=== PATIENT | female | born 1980 | race Caucasian/White ===

== ENCOUNTER 2025-11-07 08:09 | Outpatient (AMB) | payer MEDICARE, SELFPAY ==
--- NOTE | 2025-11-11 21:16 | MHC.OFFVISWM ---
VS Expanded 11/11/25 21:17 Height 5 ft 2 in Weight 154 lb 6 oz BMI 28.2 Body Fat % 23.7 Body Fat Mass 36.65 Fat Free Mass 106.2 Visceral Fat Rating 14 Body Water % 49.6 Body Water Mass 76.6 Basal Metabolic Rate/Score 1,399 Intake Visit Reasons: TV Pre Op Panniculectomy/Hernia Repair 12/01/25 Allergies fluoxetine (From Prozac) Allergy (Mild, Verified 11/11/25 21:22) Rash medroxyprogesterone (From Depo-Provera) Allergy (Mild, Verified 11/11/25 21:22) Rash aspartame Allergy (Verified 11/11/25 21:22) Unknown Medication List - Last Reconciled 11/11/25 by Jonel Perea MD allopurinol 150 mg PO DAILY amlodipine 5 mg PO DAILY PRN atorvastatin (Lipitor) 20 mg PO BEDTIME cephalexin 500 mg PO Q12H docusate sodium (Colace) 100 mg PO DAILY ergocalciferol (vitamin D2) 1,250 mcg PO QWEEK escitalopram oxalate 15 mg PO DAILY fenofibrate 160 mg PO DAILY folic acid 5 mg PO DAILY furosemide (Lasix) 40 mg PO DAILY PRN icosapent ethyl (Vascepa) 2 grams PO BID levothyroxine 50 mcg PO DAILY mirtazapine 30 mg PO BEDTIME multivitamin 1 tab PO DAILY ondansetron 4 mg PO Q12H oxcarbazepine 600 mg PO BID polyethylene glycol 3350 17 grams PO DAILY quetiapine 200 mg PO BEDTIME topiramate 200 mg PO BID vitamin B complex 1 tab PO DAILY HPI HPI TV Pre Op Panniculectomy/Hernia Repair 12/01/25: Details: Start time: 2pm, End time: 2.45pm ?I spent 40 minutes speaking with the patient on the phone plus an additional 5 minutes reviewing and updating records for a total of 45 minutes HPI Comments Details: Sue underwent an [employer] gastric balloon by me in [facility] on 03/21/2025. The balloon was uneventfully passed in the stool. Under my supervision she has lost a total of 74.8lbs, or 32.6% TBWL. Post balloon, Mounjaro was used up to a dose of 7.5mg/week to facillate further weight loss. The Mounjaro was stopped a few weeks ago due to abdominal pain and nausea and has not been re-started. Sue had two failed incisional ventral hernia repairs with mesh and has developed a massive recurrent ventral hernia with loss of domain. This has been confirmed by abdominal CT. In addition due to the weight loss, she has developed a massive abdominal pannus that hands over to upper 1/3 of her thighs causing persistent rashes and odor. [facility] Medical History (Updated 11/11/25 @ 21:23 by Jonel Perea MD) Hypothyroidism Hyperuricemia Excess skin Anxiety Depression Hypertension Hyperlipidemia Non-insulin dependent type 2 diabetes mellitus Chronic renal insufficiency Recurrent ventral incisional hernia Overweight Surgical History (Updated 11/11/25 @ 21:05 by Jonel Perea MD) S/P repair of recurrent ventral hernia H/O ventral hernia repair History of laparoscopic cholecystectomy Telehealth Telehealth Telehealth Platform: Telephone Location of provider rendering services: practice address Location of patient: address on file Patient Identification confirmed using: Name, : Yes Telehealth method: voice only Patient verbally consented to treatment: Yes Patient verbally consented to billing insurance company: Yes Patient informed of any privacy concerns related to visit: Yes Minutes spent on Phone/Video with Pt.: 45 Assessment & Plan Assessment & Plan (1) Recurrent ventral incisional hernia: Code(s): K43.2 - Incisional hernia without obstruction or gangrene Category: Medical Plan: 1. Plan for incisional ventral hernia repair and panniculectomy. Risks of infection, bleeding, asymmetry, wound dehiscence and blood clots were discussed with the patient. 2. You will have a drain the abdomen that may stay a few weeks before it may be removed 3. You will need to be doing sponge baths the first 1-2 weeks. No showers. You need to have help at home to get you up and limit your activities as much as possible for at least the 4-6 weeks after surgery 4. We will arrange for a visiting nurse to come at home to help you with dressing changes and send me pictures of the procedures. We will send at your home supplies for the dressing changes. 5. As of 11/24/2025, please change nutritional plan to four IsoWhey protein shakes with HALF SCOOP EACH in 8oz low fat unsweetened almond milk ?at 7am-9am, 10am-12pm, 1pm-3pm and 4pm-6pm AND ONE more IsoWHEY protein shake with ONE scoop in 8oz unsweetended almond milk at 7pm-9pm. This will improve weight loss and healing after surgery. 6. Continue all vitamins 7. Do not use the Lasix as of 11/29/25 (last dose that day if required). 8. 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 Risks and complications were discussed the possibility of hernia recurrence, bleeding that may require transfusion, loss of the umbilicus, wound dehiscence or infection, dog ears , flap asymmetry, blood clots. We also discussed the importance of strict avoidance of weight lifting. 10. Avoid aspirin, motrin, ibuprofen, Aleve, Advil, Naproxyn. Only Tylenol is OK Orders: Orders Comprehensive Met. Panel Today E11.9 - Type 2 diabetes mellitus without complications, E66.3 - Overweight, E78.5 - Hyperlipidemia, unspecified, E79.0 - Hyperuricemia without signs of inflammatory arthritis and tophaceous disease, F32.A - Depression, unspecified, F41.9 - Anxiety disorder, unspecified, I10 - Essential (primary) hypertension, K43.2 - Incisional hernia without obstruction or gangrene, L98.7 - Excessive and redundant skin and subcutaneous tissue, N28.9 - Disorder of kidney and ureter, unspecified, Z87.19 - Personal history of other diseases of the digestive system, Z90.49 - Acquired absence of other specified parts of digestive tract, Z98.890 - Other specified postprocedural states TSH reflex Free T4 Today E11.9 - Type 2 diabetes mellitus without complications, E66.3 - Overweight, E78.5 - Hyperlipidemia, unspecified, E79.0 - Hyperuricemia without signs of inflammatory arthritis and tophaceous disease, F32.A - Depression, unspecified, F41.9 - Anxiety disorder, unspecified, I10 - Essential (primary) hypertension, K43.2 - Incisional hernia without obstruction or gangrene, L98.7 - Excessive and redundant skin and subcutaneous tissue, N28.9 - Disorder of kidney and ureter, unspecified, Z87.19 - Personal history of other diseases of the digestive system, Z90.49 - Acquired absence of other specified parts of digestive tract, Z98.890 - Other specified postprocedural states Vitamin A Today E11.9 - Type 2 diabetes mellitus without complications, E66.3 - Overweight, E78.5 - Hyperlipidemia, unspecified, E79.0 - Hyperuricemia without signs of inflammatory arthritis and tophaceous disease, F32.A - Depression, unspecified, F41.9 - Anxiety disorder, unspecified, I10 - Essential (primary) hypertension, K43.2 - Incisional hernia without obstruction or gangrene, L98.7 - Excessive and redundant skin and subcutaneous tissue, N28.9 - Disorder of kidney and ureter, unspecified, Z87.19 - Personal history of other diseases of the digestive system, Z90.49 - Acquired absence of other specified parts of digestive tract, Z98.890 - Other specified postprocedural states Hemoglobin A1c Today E11.9 - Type 2 diabetes mellitus without complications, E66.3 - Overweight, E78.5 - Hyperlipidemia, unspecified, E79.0 - Hyperuricemia without signs of inflammatory arthritis and tophaceous disease, F32.A - Depression, unspecified, F41.9 - Anxiety disorder, unspecified, I10 - Essential (primary) hypertension, K43.2 - Incisional hernia without obstruction or gangrene, L98.7 - Excessive and redundant skin and subcutaneous tissue, N28.9 - Disorder of kidney and ureter, unspecified, Z87.19 - Personal history of other diseases of the digestive system, Z90.49 - Acquired absence of other specified parts of digestive tract, Z98.890 - Other specified postprocedural states Type and Screen Today E11.9 - Type 2 diabetes mellitus without complications, E66.3 - Overweight, E78.5 - Hyperlipidemia, unspecified, E79.0 - Hyperuricemia without signs of inflammatory arthritis and tophaceous disease, F32.A - Depression, unspecified, F41.9 - Anxiety disorder, unspecified, I10 - Essential (primary) hypertension, K43.2 - Incisional hernia without obstruction or gangrene, L98.7 - Excessive and redundant skin and subcutaneous tissue, N28.9 - Disorder of kidney and ureter, unspecified, Z87.19 - Personal history of other diseases of the digestive system, Z90.49 - Acquired absence of other specified parts of digestive tract, Z98.890 - Other specified postprocedural states C Reactive Protein Today E11.9 - Type 2 diabetes mellitus without complications, E66.3 - Overweight, E78.5 - Hyperlipidemia, unspecified, E79.0 - Hyperuricemia without signs of inflammatory arthritis and tophaceous disease, F32.A - Depression, unspecified, F41.9 - Anxiety disorder, unspecified, I10 - Essential (primary) hypertension, K43.2 - Incisional hernia without obstruction or gangrene, L98.7 - Excessive and redundant skin and subcutaneous tissue, N28.9 - Disorder of kidney and ureter, unspecified, Z87.19 - Personal history of other diseases of the digestive system, Z90.49 - Acquired absence of other specified parts of digestive tract, Z98.890 - Other specified postprocedural states Partial Thromboplastin Time Today E11.9 - Type 2 diabetes mellitus without complications, E66.3 - Overweight, E78.5 - Hyperlipidemia, unspecified, E79.0 - Hyperuricemia without signs of inflammatory arthritis and tophaceous disease, F32.A - Depression, unspecified, F41.9 - Anxiety disorder, unspecified, I10 - Essential (primary) hypertension, K43.2 - Incisional hernia without obstruction or gangrene, L98.7 - Excessive and redundant skin and subcutaneous tissue, N28.9 - Disorder of kidney and ureter, unspecified, Z87.19 - Personal history of other diseases of the digestive system, Z90.49 - Acquired absence of other specified parts of digestive tract, Z98.890 - Other specified postprocedural states Zinc Today E11.9 - Type 2 diabetes mellitus without complications, E66.3 - Overweight, E78.5 - Hyperlipidemia, unspecified, E79.0 - Hyperuricemia without signs of inflammatory arthritis and tophaceous disease, F32.A - Depression, unspecified, F41.9 - Anxiety disorder, unspecified, I10 - Essential (primary) hypertension, K43.2 - Incisional hernia without obstruction or gangrene, L98.7 - Excessive and redundant skin and subcutaneous tissue, N28.9 - Disorder of kidney and ureter, unspecified, Z87.19 - Personal history of other diseases of the digestive system, Z90.49 - Acquired absence of other specified parts of digestive tract, Z98.890 - Other specified postprocedural states Insulin Today E11.9 - Type 2 diabetes mellitus without complications, E66.3 - Overweight, E78.5 - Hyperlipidemia, unspecified, E79.0 - Hyperuricemia without signs of inflammatory arthritis and tophaceous disease, F32.A - Depression, unspecified, F41.9 - Anxiety disorder, unspecified, I10 - Essential (primary) hypertension, K43.2 - Incisional hernia without obstruction or gangrene, L98.7 - Excessive and redundant skin and subcutaneous tissue, N28.9 - Disorder of kidney and ureter, unspecified, Z87.19 - Personal history of other diseases of the digestive system, Z90.49 - Acquired absence of other specified parts of digestive tract, Z98.890 - Other specified postprocedural states IRON PROFILE Today E11.9 - Type 2 diabetes mellitus without complications, E66.3 - Overweight, E78.5 - Hyperlipidemia, unspecified, E79.0 - Hyperuricemia without signs of inflammatory arthritis and tophaceous disease, F32.A - Depression, unspecified, F41.9 - Anxiety disorder, unspecified, I10 - Essential (primary) hypertension, K43.2 - Incisional hernia without obstruction or gangrene, L98.7 - Excessive and redundant skin and subcutaneous tissue, N28.9 - Disorder of kidney and ureter, unspecified, Z87.19 - Personal history of other diseases of the digestive system, Z90.49 - Acquired absence of other specified parts of digestive tract, Z98.890 - Other specified postprocedural states Prothrombin Time INR Today E11.9 - Type 2 diabetes mellitus without complications, E66.3 - Overweight, E78.5 - Hyperlipidemia, unspecified, E79.0 - Hyperuricemia without signs of inflammatory arthritis and tophaceous disease, F32.A - Depression, unspecified, F41.9 - Anxiety disorder, unspecified, I10 - Essential (primary) hypertension, K43.2 - Incisional hernia without obstruction or gangrene, L98.7 - Excessive and redundant skin and subcutaneous tissue, N28.9 - Disorder of kidney and ureter, unspecified, Z87.19 - Personal history of other diseases of the digestive system, Z90.49 - Acquired absence of other specified parts of digestive tract, Z98.890 - Other specified postprocedural states Vitamin B1 Today E11.9 - Type 2 diabetes mellitus without complications, E66.3 - Overweight, E78.5 - Hyperlipidemia, unspecified, E79.0 - Hyperuricemia without signs of inflammatory arthritis and tophaceous disease, F32.A - Depression, unspecified, F41.9 - Anxiety disorder, unspecified, I10 - Essential (primary) hypertension, K43.2 - Incisional hernia without obstruction or gangrene, L98.7 - Excessive and redundant skin and subcutaneous tissue, N28.9 - Disorder of kidney and ureter, unspecified, Z87.19 - Personal history of other diseases of the digestive system, Z90.49 - Acquired absence of other specified parts of digestive tract, Z98.890 - Other specified postprocedural states Lipid Panel Today E11.9 - Type 2 diabetes mellitus without complications, E66.3 - Overweight, E78.5 - Hyperlipidemia, unspecified, E79.0 - Hyperuricemia without signs of inflammatory arthritis and tophaceous disease, F32.A - Depression, unspecified, F41.9 - Anxiety disorder, unspecified, I10 - Essential (primary) hypertension, K43.2 - Incisional hernia without obstruction or gangrene, L98.7 - Excessive and redundant skin and subcutaneous tissue, N28.9 - Disorder of kidney and ureter, unspecified, Z87.19 - Personal history of other diseases of the digestive system, Z90.49 - Acquired absence of other specified parts of digestive tract, Z98.890 - Other specified postprocedural states Vitamin B12 Today E11.9 - Type 2 diabetes mellitus without complications, E66.3 - Overweight, E78.5 - Hyperlipidemia, unspecified, E79.0 - Hyperuricemia without signs of inflammatory arthritis and tophaceous disease, F32.A - Depression, unspecified, F41.9 - Anxiety disorder, unspecified, I10 - Essential (primary) hypertension, K43.2 - Incisional hernia without obstruction or gangrene, L98.7 - Excessive and redundant skin and subcutaneous tissue, N28.9 - Disorder of kidney and ureter, unspecified, Z87.19 - Personal history of other diseases of the digestive system, Z90.49 - Acquired absence of other specified parts of digestive tract, Z98.890 - Other specified postprocedural states Vitamin D 25-OH Total Today E11.9 - Type 2 diabetes mellitus without complications, E66.3 - Overweight, E78.5 - Hyperlipidemia, unspecified, E79.0 - Hyperuricemia without signs of inflammatory arthritis and tophaceous disease, F32.A - Depression, unspecified, F41.9 - Anxiety disorder, unspecified, I10 - Essential (primary) hypertension, K43.2 - Incisional hernia without obstruction or gangrene, L98.7 - Excessive and redundant skin and subcutaneous tissue, N28.9 - Disorder of kidney and ureter, unspecified, Z87.19 - Personal history of other diseases of the digestive system, Z90.49 - Acquired absence of other specified parts of digestive tract, Z98.890 - Other specified postprocedural states Complete Blood Count Auto Diff Today E11.9 - Type 2 diabetes mellitus without complications, E66.3 - Overweight, E78.5 - Hyperlipidemia, unspecified, E79.0 - Hyperuricemia without signs of inflammatory arthritis and tophaceous disease, F32.A - Depression, unspecified, F41.9 - Anxiety disorder, unspecified, I10 - Essential (primary) hypertension, K43.2 - Incisional hernia without obstruction or gangrene, L98.7 - Excessive and redundant skin and subcutaneous tissue, N28.9 - Disorder of kidney and ureter, unspecified, Z87.19 - Personal history of other diseases of the digestive system, Z90.49 - Acquired absence of other specified parts of digestive tract, Z98.890 - Other specified postprocedural states Ferritin Today E11.9 - Type 2 diabetes mellitus without complications, E66.3 - Overweight, E78.5 - Hyperlipidemia, unspecified, E79.0 - Hyperuricemia without signs of inflammatory arthritis and tophaceous disease, F32.A - Depression, unspecified, F41.9 - Anxiety disorder, unspecified, I10 - Essential (primary) hypertension, K43.2 - Incisional hernia without obstruction or gangrene, L98.7 - Excessive and redundant skin and subcutaneous tissue, N28.9 - Disorder of kidney and ureter, unspecified, Z87.19 - Personal history of other diseases of the digestive system, Z90.49 - Acquired absence of other specified parts of digestive tract, Z98.890 - Other specified postprocedural states Medications: New cephalexin 500 mg PO Q12H 60 caps 2RF M79.3 - Panniculitis, unspecified ondansetron 4 mg PO Q12H 20 tabs 0RF nausea and vomiting R11.0 - Nausea polyethylene glycol 3350 Mix each measuring cup with 8oz of water, Crystal light, or Gatorade zero, or Propel and do 7 measuring cups on TWO DAYS prior to surgery and another 7 measuring cups ONE DAY prior to surgery 17 grams PO DAILY 238 grams 0RF Z01.818 - Encounter for other preprocedural examination docusate sodium (Colace) 100 mg PO DAILY 90 caps 0RF K59.00 - Constipation, unspecified
[2025-11-11 21:17] VITALS: BMI 28.2
== END 2025-11-11 21:43 | disposition home or self-care (01) ==
LOC: HO.HBS 08:09
PROVIDERS: Visit Provider Surgery
DX: K43.2 Incisional hernia without obstruction or gangrene (principal); M79.3 Panniculitis, unspecified; L98.7 Excessive and redundant skin and subcutaneous tissue
CPT/HCPCS: 99024